=== PATIENT | male | born 1950 | race African-American/Black ===

== ENCOUNTER 2017-09-30 21:13 | Emergency (ER) | payer MEDICARE, MEDICAID ==
[~2017-09-30] VITALS: Ht 182.9 cm; Wt 77.0 kg
[2017-09-30 22:12] VITALS: BP 159/133
[2017-09-30] MEDS ORDERED: HYDROCORTISONE 1% RECTAL CREAM 30GM PR STA (23:03)
== END 2017-09-30 23:44 | disposition home or self-care (01) ==
LOC: ER 22:26
DX: K64.4 Residual hemorrhoidal skin tags (principal); K59.00 Constipation, unspecified; I10 Essential (primary) hypertension; Z87.891 Personal history of nicotine dependence; Z91.14 Patient's other noncompliance with medication regimen
CPT/HCPCS: 99282